=== PATIENT | male | born 1950 | race Hispanic/Latino ===

== ENCOUNTER 2021-08-31 10:34 | Emergency (ER) | payer OTHER ==
[2021-08-31] MEDS ORDERED: LIDOCAINE 4% PATCH ONE (13:50)
[2021-08-31] MEDS ORDERED: CYCLOBENZAPRINE 10 MG TAB ONE (13:50)
[2021-08-31] MEDS ORDERED: KETOROLAC 30 MG/ML INJ ONE (13:50)
--- NOTE | 2021-08-31 14:59 | EDPHYS ---
Physician Documentation [facility] Name: Jeffrey Schafer Age: 70 yrs Sex: Male : 1950 Arrival Date: 08/31/2021 Time: 10:36 Bed 12 Private MD: ED Physician Surinder Beckwith HPI: 08/31 13:39 This 70 yrs old Male presents to ER via Ambulatory with complaints of right pm1 buttocks and leg pain. 13:39 The patient presents with pain, that is acute. The complaints affect the right buttocks pm1 radiating down right leg. Context: The problem was sustained at an unknown site, resulted from an unknown cause, the patient can fully bear weight, the patient is able to ambulate, Problem is a result from a previous injury: No. Onset: The symptoms/episode began/occurred 1 month(s) ago. Associated signs and symptoms: Pertinent negatives numbness, tingling. Treatment prior to arrival includes: no previous treatment. Severity of symptoms: in the emergency department the symptoms are actually worse. The patient has not experienced similar symptoms in the past. The patient has not recently seen a physician. Historical: - Allergies: 11:39 No Known Allergies; vg1 - PMHx: 11:39 Hypertensive disorder; vg1 - PSHx: 11:39 None; vg1 - Immunization history:: Client reports receiving the 2nd dose of the Covid vaccine. - Social history:: Smoking status: Patient reports the use of cigarette tobacco products, smokes one-half pack cigarettes per day. ROS: 13:39 Constitutional: Negative for fever, chills, and weight loss, Cardiovascular: Negative pm1 for chest pain, palpitations, and edema, Respiratory: Negative for shortness of breath, cough, wheezing, and pleuritic chest pain. 13:39 Skin: Negative for injury, rash, and discoloration, Neuro: Negative for headache, weakness, numbness, tingling, and seizure. 13:39 MS/extremity: Positive for right buttock pain radiating down right leg. 13:39 All other systems are negative. Exam: 13:39 Constitutional: This is a well developed, well nourished patient who is awake, alert, pm1 and in no acute distress. Head/Face: Normocephalic, atraumatic. 13:39 Skin: Warm, dry with normal turgor. Normal color with no rashes, no lesions, and no evidence of cellulitis. 13:39 Cardiovascular: Exam negative for acute changes, Rate: normal, Rhythm: regular, Pulses: no pulse deficits are appreciated. 13:39 Respiratory: Exam negative for acute changes, respiratory distress, shortness of breath. 13:39 Abdomen/GI: Exam negative for acute changes, Inspection: abdomen appears normal, Palpation: abdomen is soft and non-tender, in all quadrants. 13:39 Back: Exam negative for acute changes, pain, is absent, normal spinal alignment noted, CVA tenderness, is absent, vertebral tenderness, is not appreciated. 13:39 Musculoskeletal/extremity: Exam is negative for acute changes, Extremities: all appear grossly normal, with no appreciated pain with palpation, ROM: intact in all extremities, Circulation is intact in all extremities. the right leg and left leg Sensation intact. 13:39 Neuro: Exam negative for acute changes, Orientation: is normal, Mentation: is normal, Motor: is normal, moves all fours, Gait: is steady, at a normal pace, without difficulty. Vital Signs: 11:37 BP 185 / 94; Pulse 105; Resp 16; Temp 98.3; Pulse Ox 100% ; Weight 72.57 kg; Height 5 vg1 ft. 6 in. (167.64 cm); Pain 7/10; 13:55 BP 171 / 89; Pulse 101; Resp 18; Pulse Ox 100% on R/A; ld1 15:10 BP 175 / 88; Pulse 91; Resp 19; Pulse Ox 99% on R/A; ld1 11:37 Body Mass Index 25.82 (72.57 kg, 167.64 cm) vg1 MDM: 13:39 Patient medically screened. may 14:57 Data reviewed: vital signs. Data interpreted: Pulse oximetry: on room air is 100 %. pm1 Interpretation: normal. Counseling: I had a detailed discussion with the patient and/or guardian regarding: the historical points, exam findings, and any diagnostic results supporting the discharge/admit diagnosis, the need for outpatient follow up, to return to the emergency department if symptoms worsen or persist or if there are any questions or concerns that arise at home. 15:12 ED course: Patient and his requested blood pressure medication to start on before pm1 seeing his PCP. Patient was prescribed a blood pressure medication by PCP about 1 year and has not taken any of the medication and was concerned that the prescription was already . Administered Medications: 13:54 Drug: Ketorolac 30 mg Route: IM; Site: right gluteus; ld1 13:55 Follow up: Response: No adverse reaction ld1 13:55 Drug: Flexeril (cyclobenzaprine) 10 mg Route: PO; ld1 13:55 Follow up: Response: No adverse reaction ld1 13:55 Drug: Lidoderm Patch 5 % (700 mg/patch) 1 patches Route: Topical; Site: affected area; ld1 Disposition: 09/01 07:41 Co-signature as Attending Physician, Surinder Beckwith MD I agree with the assessment and may plan of care. Disposition Summary: 08/31/21 14:58 Discharge Ordered Location: Home pm1 Problem: new pm1 Symptoms: have improved pm1 Condition: Stable pm1 Diagnosis - Sciatica, left side pm1 - Muscle spasm pm1 Followup: pm1 - With: Emergency Department - When: As needed - Reason: Worsening of condition Followup: pm1 - With: Private Physician - When: 2 - 3 days - Reason: Recheck today's complaints, Continuance of care, Re-evaluation by your physician Discharge Instructions: - Discharge Summary Sheet pm1 - Muscle Cramps and Spasms pm1 - Sciatica pm1 Forms: - Medication Reconciliation Form pm1 - Thank You Letter pm1 - Antibiotic Education pm1 - Prescription Opioid Use pm1 Prescriptions: - Lidoderm 5 % Topical adhesive patch,medicated - apply 1 patch by TRANSDERMAL route once daily As needed 12 hours on and 12 pm1 hours off in a 24 hour period; 10 patch; Refills: 0, Product Selection Permitted - Cyclobenzaprine 10 mg Oral Tablet - take 1 tablet by ORAL route every 8 hours As needed; 30 tablet; Refills: 0, pm1 Product Selection Permitted - Lisinopril 10 mg Oral Tablet - take 1 tablet by ORAL route once daily; 20 tablet; Refills: 0, Product pm1 Selection Permitted - Diclofenac Sodium 75 mg Oral tablet,delayed release (DR/EC) - take 1 tablet by ORAL route 2 times per day As needed; 30 tablet; Refills: 0, pm1 Product Selection Permitted Signatures: Surinder Beckwith MD MD cha Marinas, Patrick, MICHELA TRENCH PIPE LAYER HELPER pm1 Rosa Rowland RN RN vg1 Daniella Mayo, RN RN ld1
--- NOTE | 2021-08-31 14:59 | ER ---
Nurse's Notes [facility] Name: Jeffrey Schafer Age: 70 yrs Sex: Male : 1950 Arrival Date: 08/31/2021 Time: 10:36 Bed 12 Private MD: Diagnosis: Sciatica, left side;Muscle spasm Presentation: 08/31 11:37 Chief complaint: Patient states: Right lower back pain that radiates to buttocks x 1 vg1 month; states pain is 'getting worse'. Coronavirus screen: Vaccine status: Patient reports receiving the 2nd dose of the covid vaccine. Client denies travel out of the [place] in the last 14 days. Ebola Screen: Patient negative for fever greater than or equal to 101.5 degrees Fahrenheit, and additional compatible Ebola Virus Disease symptoms. Initial Sepsis Screen: Does the patient meet any 2 criteria? No. Patient's initial sepsis screen is negative. Does the patient have a suspected source of infection? No. Patient's initial sepsis screen is negative. Risk Assessment: Do you want to hurt yourself or someone else? Patient reports no desire to harm self or others. Onset of symptoms was July 31, 2022. 11:37 Method Of Arrival: Ambulatory vg1 11:37 Acuity: BRIGIDA 3 vg1 Triage Assessment: 11:39 General: Appears in no apparent distress. uncomfortable, Behavior is calm, cooperative. vg1 Pain: Complains of pain in right low back. Historical: - Allergies: 11:39 No Known Allergies; vg1 - PMHx: 11:39 Hypertensive disorder; vg1 - PSHx: 11:39 None; vg1 - Immunization history:: Client reports receiving the 2nd dose of the Covid vaccine. - Social history:: Smoking status: Patient reports the use of cigarette tobacco products, smokes one-half pack cigarettes per day. Screenin:55 Abuse screen: Denies threats or abuse. Denies injuries from another. Nutritional ld1 screening: No deficits noted. Tuberculosis screening: No symptoms or risk factors identified. Fall Risk None identified. Assessment: 13:55 General: Appears in no apparent distress. uncomfortable, Behavior is cooperative, ld1 anxious. Pain: Complains of pain in right gluteus yohannes and right gluteal fold Pain currently is 8 out of 10 on a pain scale. Quality of pain is described as shooting, Pain began gradually, Is continuous. Neuro: Level of Consciousness is awake, alert, obeys commands, Oriented to person, place, time, situation. Cardiovascular: Capillary refill < 3 seconds Patient's skin is warm and dry. Respiratory: Airway is patent Respiratory effort is even, unlabored, Respiratory pattern is regular, symmetrical. GI: Abdomen is flat, non-distended. : No signs and/or symptoms were reported regarding the genitourinary system. EENT: No signs and/or symptoms were reported regarding the EENT system. Derm: No signs and/or symptoms reported regarding the dermatologic system. Musculoskeletal: Reports pain in right gluteus yohannes. Vital Signs: 11:37 BP 185 / 94; Pulse 105; Resp 16; Temp 98.3; Pulse Ox 100% ; Weight 72.57 kg; Height 5 vg1 ft. 6 in. (167.64 cm); Pain 7/10; 13:55 BP 171 / 89; Pulse 101; Resp 18; Pulse Ox 100% on R/A; ld1 15:10 BP 175 / 88; Pulse 91; Resp 19; Pulse Ox 99% on R/A; ld1 11:37 Body Mass Index 25.82 (72.57 kg, 167.64 cm) vg1 ED Course: 10:36 Patient arrived in ED. am2 11:39 Triage completed. vg1 11:39 Arm band placed on. vg1 13:34 Major Lowry NP is PHCP. pm1 13:34 Surinder Beckwith MD is Attending Physician. pm1 13:54 Daniella Mayo RN is Primary Nurse. ld1 13:55 Patient has correct armband on for positive identification. Bed in low position. Call ld1 light in reach. Side rails up X2. staining machine operator on. Pulse ox on. NIBP on. Door closed. Warm blanket given. 13:55 No provider procedures requiring assistance completed. Patient did not have IV access ld1 during this emergency room visit. Administered Medications: 13:54 Drug: Ketorolac 30 mg Route: IM; Site: right gluteus; ld1 13:55 Follow up: Response: No adverse reaction ld1 13:55 Drug: Flexeril (cyclobenzaprine) 10 mg Route: PO; ld1 13:55 Follow up: Response: No adverse reaction ld1 13:55 Drug: Lidoderm Patch 5 % (700 mg/patch) 1 patches Route: Topical; Site: affected area; ld1 Outcome: 14:58 Discharge ordered by MD. pm1 15:16 Discharged to home ambulatory. ld1 15:16 Condition: stable 15:16 Discharge instructions given to patient, family, Instructed on discharge instructions, follow up and referral plans. medication usage, Demonstrated understanding of instructions, follow-up care, medications, Prescriptions given X 3. 15:17 Patient left the ED. ld1 Signatures: Major Lowry NP JET BLADE POLISHER pm1 Andra Burr Victoria, RN RN vg1 Daniella Mayo RN RN ld1
[2021-08-31 15:22] VITALS: TEMP 98.3
[2021-08-31 15:25] VITALS: BP 175/88; O2SAT 99
== END 2021-08-31 15:17 | disposition home or self-care (01) ==
LOC: ER 10:34
DX: M54.32 Sciatica, left side (principal); M62.830 Muscle spasm of back; F17.210 Nicotine dependence, cigarettes, uncomplicated; I10 Essential (primary) hypertension
CPT/HCPCS: 96372; 99284

== ENCOUNTER 2022-01-01 13:51 | Emergency (ER) | payer OTHER ==
--- OUTSIDE RECORDS SUMMARY | 2022-01-01 13:54 | XMS REPORT | Continuity of Care Document ---
:1950 Author Organization [facility] t Address [address] [place] [address] Care Team Providers Name Role Phone Radha Coleen Attending Clinician Unavailable BENOIT HERNANDEZ Attending Clinician Unavailable Eliceo-Mbayo_A_AH Attending Clinician Unavailable Eliceo-Mbayo_A_AH Admitting Clinician Unavailable Payers Payer Name Policy Type Policy Number Effective Date Expiration Date S tim [id number] 15 [id number] 2020 MEDICARE HMO 00:00:00 [place] - [id number] 2019 [facility] (MEDICARE 00:00:00 REPLACEMENT/ADVANTA GE - HMO) Problems This patient has no known problems. Allergies, Adverse Reactions, Alerts This patient has no known allergies or adverse reactions. Medications This patient has no known medications. Procedures This patient has no known procedures. Encounters Start End Encounter Admission Attending Care Care Encounter Source Date/Time Date/Time Type Type Clinicians Facility Department ID 2021-11-06 Outpatient TIFFANY Garcia [facility] [id number] Common 09:36:03 Coleen [facility] 2021-11-[address] [facility] [id number] Common 15:27:05 Coleen [facility] 2021-10-[address] [facility] [id number] Common 13:06:05 [facility] 2021-12-29 2021-12-29 ambulatory [facility] [id number] Common 00:00:00 00:00:00 [facility] 2021-12-09 2021-12-09 ambulatory [facility] [id number] Common 00:00:00 00:00:00 [facility] 2021-11-10 2021-11-10 ambulatory [facility] [id number] Common 00:00:00 00:00:00 [facility] 2021-10-06 2021-10-06 ambulatory [facility] [id number] Common 00:00:00 00:00:00 [facility] 2021-09-16 2021-09-16 Outpatient DOREEN HERNANDEZ [id number] Doreen 13:45:00 13:45:00 BENOIT rascon 2021-09-10 2021-09-10 Outpatient DOREEN HERNANDEZ [id number] Doreen 16:00:00 16:00:00 BENOIT Seybol d 2019-10-11 2019-10-11 Outpatient Eliceo-Mbayo VFP VFP [id number] 04:44:00 04:44:00 _A_AH [id number] 2019-10-11 2019-10-11 Outpatient Eliceo-Mbayo VFP VFP [id number] 04:44:00 04:44:00 _A_AH [id number] Family Practic e 2019-10-11 2019-10-11 Outpatient Eliceo-Mbayo VFP VFP [id number] 04:44:00 04:44:00 _A_AH [id number] Family Practic e Results This patient has no known results.
[2022-01-01 15:02] LABS: Absolute Lymphocytes (CBC) 1.4 K/uL (0.7-4.9); Hematocrit 36.7 % (39.6-49.0); Lymphocytes % 15.1 % (15.3-44.8); MPV 6.7 fL (7.6-11.3); RBC Red Blood Cell Count 4.14 M/uL (4.33-5.43)
[2022-01-01 15:11] LABS: Potassium 3.9 mmol/L (3.5-5.1)
[2022-01-01 15:19] LABS: Albumin 4.2 g/dL (3.4-5.0); Bilirubin Total 0.3 mg/dL (0.2-1.0); Protein, Total 7.6 g/dL (6.4-8.2)
--- NOTE | 2022-01-01 15:30 | ER ---
Nurse's Notes [facility] Name: Jeffrey Schafer Age: 71 yrs Sex: Male : 1950 Arrival Date: 01/01/2022 Time: 13:53 Bed 6 Private MD: Diagnosis: Person with feared health complaint in whom no diagnosis is made Presentation: 01/01 14:35 Chief complaint: Patient states: he was sent by his dr for high potassium. patient ap3 denies any chest pain at this time. patient states that he hasn't had any chest pain, and his provider has checked his potassium twice this week, and both times it was high. Coronavirus screen: At this time, the client does not indicate any symptoms associated with coronavirus-19. Ebola Screen: No symptoms or risks identified at this time. Initial Sepsis Screen: Does the patient meet any 2 criteria? No. Patient's initial sepsis screen is negative. Does the patient have a suspected source of infection? No. Patient's initial sepsis screen is negative. Risk Assessment: Do you want to hurt yourself or someone else? Patient reports no desire to harm self or others. Onset of symptoms was January 01, 2022. 14:35 Method Of Arrival: Ambulatory ap3 14:35 Acuity: BRIGIDA 3 ap3 Triage Assessment: 14:38 General: Appears in no apparent distress. Behavior is calm, cooperative. Pain: Denies ap3 pain. Neuro: Level of Consciousness is awake, alert, obeys commands, Oriented to person, place, time, situation, Appropriate for age Gait is steady, Speech is normal. Cardiovascular: Denies chest pain, shortness of breath, Patient's skin is warm and dry. Respiratory: Airway is patent Respiratory effort is even, unlabored, Respiratory pattern is regular, symmetrical. Historical: - Allergies: 14:37 No Known Allergies; ap3 - Home Meds: 14:37 two blood pressure medications-unknown [Active]; ap3 - PMHx: 14:37 Hypertensive disorder; ap3 - Immunization history:: Client reports receiving the 2nd dose of the Covid vaccine. - Social history:: Smoking status: Patient reports the use of cigarette tobacco products, smokes one-half pack cigarettes per day, Patient uses alcohol, on a daily basis. admits to "couple of beers" a day. Screenin:39 Abuse screen: Denies threats or abuse. Nutritional screening: No deficits noted. ap3 Tuberculosis screening: No symptoms or risk factors identified. Fall Risk None identified. Assessment: 14:51 General: Appears in no apparent distress. Behavior is calm, cooperative. Pain: Denies iw pain. Neuro: Castano Agitation-Sedation Scale (RASS): 0 - Alert and Calm Level of Consciousness is awake, alert, obeys commands, Oriented to person, place, time, situation, Moves all extremities. Full function. Cardiovascular: Patient's skin is warm and dry. Respiratory: Respiratory effort is even, unlabored, Respiratory pattern is regular, symmetrical. Derm: Skin is intact, is healthy with good turgor. Musculoskeletal: Range of motion: intact in all extremities. Vital Signs: 14:35 BP 164 / 67; Pulse 77; Resp 17; Temp 98.1; Pulse Ox 100% on R/A; ap3 ED Course: 13:53 Patient arrived in ED. ds1 14:23 Major Lowry NP is PHCP. pm1 14:23 Emeterio Blanchard MD is Attending Physician. pm1 14:35 Andra Aguilar, HARJINDER is Primary Nurse. ap3 14:37 Triage completed. ap3 14:40 Arm band placed on left wrist. ap3 14:45 Initial lab(s) drawn, by me, sent to lab. Inserted saline lock: 20 gauge in right aa5 antecubital area, using aseptic technique. Blood collected. 14:52 Primary Nurse role handed off by Andra Aguilar, HARJINDER iw 14:52 Yvonne Smith, HARJINDER is Primary Nurse. iw 14:52 Yvonne Smith, HARJINDER is Primary Nurse. iw 15:48 No provider procedures requiring assistance completed. IV discontinued, intact, iw bleeding controlled, No redness/swelling at site. Pressure dressing applied. Administered Medications: No medications were administered Medication: 14:40 VIS not applicable for this client. ap3 Outcome: 15:29 Discharge ordered by . pm1 15:48 Discharged to home ambulatory, with family. iw 15:48 Condition: good 15:48 Discharge instructions given to patient, Instructed on discharge instructions, follow up and referral plans. Demonstrated understanding of instructions, follow-up care. 15:49 Patient left the ED. iw Signatures: Avani Bonds ds1 Yvonne Smith, RN RN iw Cecily Polo, RN RN aa5 Major Lowry, SUPERVISOR JOINERS SUPERVISOR JOINERS pm1 Andra Aguilar, RN RN ap3
--- NOTE | 2022-01-01 15:30 | EDPHYS ---
Physician Documentation [facility] Name: Jeffrye Schafer Age: 71 yrs Sex: Male : 1950 Arrival Date: 01/01/2022 Time: 13:53 Bed 6 Private MD: ED Physician Emeterio Blanchard HPI: 01/01 14:47 This 71 yrs old Male presents to ER via Ambulatory with complaints of High pm1 Potassium- Sent per . 14:47 Patient sent to the ER for evaluation of his elevated potassium. Patient had labs drawn pm1 Keven and yesterday by his PCP and the potassium was elevated on both samples. Onset: The symptoms/episode began/occurred 4 day(s) ago. Severity of symptoms: in the emergency department the symptoms are unchanged. The patient has not experienced similar symptoms in the past. The patient has been recently seen by a physician: the patient's primary care provider. Patient presenting to the ER for abnormal lab values. Patient without any other complaints. Historical: - Allergies: 14:37 No Known Allergies; ap3 - Home Meds: 14:37 two blood pressure medications-unknown [Active]; ap3 - PMHx: 14:37 Hypertensive disorder; ap3 - Immunization history:: Client reports receiving the 2nd dose of the Covid vaccine. - Social history:: Smoking status: Patient reports the use of cigarette tobacco products, smokes one-half pack cigarettes per day, Patient uses alcohol, on a daily basis. admits to "couple of beers" a day. ROS: 14:47 Constitutional: Negative for fever, chills, and weight loss, Cardiovascular: Negative pm1 for chest pain, palpitations, and edema, Respiratory: Negative for shortness of breath, cough, wheezing, and pleuritic chest pain, Abdomen/GI: Negative for abdominal pain, nausea, vomiting, diarrhea, and constipation, Back: Negative for injury and pain, MS/Extremity: Negative for injury and deformity, Skin: Negative for injury, rash, and discoloration, Neuro: Negative for headache, weakness, numbness, tingling, and seizure. 14:47 All other systems are negative. Exam: 14:47 Constitutional: This is a well developed, well nourished patient who is awake, alert, pm1 and in no acute distress. Head/Face: Normocephalic, atraumatic. 14:47 Back: No spinal tenderness. No costovertebral tenderness. Full range of motion. Skin: Warm, dry with normal turgor. Normal color with no rashes, no lesions, and no evidence of cellulitis. MS/ Extremity: Pulses equal, no cyanosis. Neurovascular intact. Full, normal range of motion. 14:47 Cardiovascular: Exam negative for acute changes, Rate: normal, Rhythm: regular, Pulses: no pulse deficits are appreciated. 14:47 Respiratory: Exam negative for acute changes, respiratory distress, shortness of breath, Breath sounds: are clear throughout. 14:47 Abdomen/GI: Exam negative for acute changes, Inspection: abdomen appears normal, Palpation: abdomen is soft and non-tender, in all quadrants. 14:47 Neuro: Exam negative for acute changes, Orientation: is normal, Mentation: is normal, Motor: is normal, moves all fours, Gait: is steady, at a normal pace, without difficulty. Vital Signs: 14:35 BP 164 / 67; Pulse 77; Resp 17; Temp 98.1; Pulse Ox 100% on R/A; ap3 MDM: 14:38 Patient medically screened. pm1 15:28 Data reviewed: vital signs. Data interpreted: Pulse oximetry: on room air is 100 %. pm1 Interpretation: normal. Counseling: I had a detailed discussion with the patient and/or guardian regarding: the historical points, exam findings, and any diagnostic results supporting the discharge/admit diagnosis, lab results, the need for outpatient follow up, to return to the emergency department if symptoms worsen or persist or if there are any questions or concerns that arise at home. 01/01 14:47 Order name: CBC with Diff; Complete Time: 15:17 pm1 01/01 14:47 Order name: CMP; Complete Time: 15:22 pm1 01/01 14:47 Order name: EKG; Complete Time: 14:47 pm1 01/01 14:47 Order name: EKG - Nurse/Tech; Complete Time: 15:11 pm1 01/01 14:47 Order name: IV Saline Lock; Complete Time: 15:11 pm1 Administered Medications: No medications were administered Disposition Summary: 01/01/22 15:29 Discharge Ordered Location: Home pm1 Problem: new pm1 Symptoms: have improved pm1 Condition: Stable pm1 Diagnosis - Person with feared health complaint in whom no diagnosis is made pm1 Followup: pm1 - With: Emergency Department - When: As needed - Reason: Worsening of condition Followup: pm1 - With: Private Physician - When: 2 - 3 days - Reason: Recheck today's complaints, Continuance of care, Re-evaluation by your physician Forms: - Medication Reconciliation Form pm1 - Thank You Letter pm1 - Antibiotic Education pm1 - Prescription Opioid Use pm1 Signatures: Dispatcher [employer] Major Donald NP TOOL ROOM MACHINIST pm1 Andra Aguilar, RN RN ap3
[2022-01-01 15:58] VITALS: BP 164/67; TEMP 98.1; O2SAT 100
--- NOTE | 2022-01-02 11:07 | EKG ---
Test Date: 2022-01-01 Test Time: 14:45:33 Community Living Coach: JAMES MEASUREMENT RESULTS: Intervals: Rate: 75 MA: 136 QRSD: 88 QT: 352 QTc: 393 [place]: P: 76 MA: 136 QRS: 66 T: 55 INTERPRETIVE STATEMENTS: Normal sinus rhythm Normal ECG No previous ECG available for comparison Electronically Signed On 01-02-22 11:06:40 CDT by Kyler Schawb
== END 2022-01-01 15:49 | disposition home or self-care (01) ==
LOC: ER 13:51
DX: Z71.1 Person with feared health complaint in whom no diagnosis is made (principal); I10 Essential (primary) hypertension; F17.210 Nicotine dependence, cigarettes, uncomplicated
CPT/HCPCS: 36415; 80053; 85025; 93005; 99283

== ENCOUNTER 2024-10-29 12:11 | Inpatient (IN) | payer OTHER ==
--- OUTSIDE RECORDS SUMMARY | 2024-10-29 12:15 | XMS REPORT | Continuity of Care Document ---
Author Name Unknown Address [address] [facility] [address] [place] [address] Organization [facility] [place] Address [address] [facility] [address] [place] [address] Care Team Providers Care Lsw Name Role Phone Coleen Garcia Attending Clinician Unavailable BENOIT HERNANDEZ Attending Clinician Unava ilable Eliceo-Mbayo_A_AH Attending Clinician Unavailable Eliceo-Mbayo_A_AH Admitting Clinician Unavailable Payers Payer Name Policy Type Policy Number Effective Date Expirati on Date Source [facility] [id number] 2020 00:00:00 [facility] (MEDICARE REPLACEMENT/ADVANT[facility] GE - HMO) [id number] 2019 00:00:00 Problems Condition Name Condition Details Condition Category Status Onset Date Resolution Date Last Treatment Date Treating Clinician Comments Source Tobacco user Smokes 20 cigarettes per day or less Problem Common [facility] [id number] Essential (primary) hypertensi on Problem [facility] [id number] Mixed hyperlipid emia Problem [facility] Anemia Anemia, unspecifie d type Problem [facility] Social History Social Habit Start Date Stop Date Quantity Comments Source History of Tobacco Use Current Smoker [facility] Sex Assigned At [facility] Smoking Status Start Date Stop Date Source Current Smoker 2024-10-08 00:00:00 [facility] Medications Ordered Medication Name Filled Medication Name Start Date Stop Date Current Medication? Ordering Clinician Indication Dosage Frequency Signature (SIG) Comments Components Source amLODIPine Besylate 10 MG amLODIPine Besylate 10 MG - 00:00: 00 No 1{table t} QD amLODIPine Besylate 10 MG Lisinopril 40 MG Lisinopril 40 MG 10-06 00:00: 00 No 1{table t} QD Lisinopril 40 MG Atorvastati n Calcium 20 MG Atorvastati n Calcium 20 MG No 1{table t} QD Atorvastat in Calcium 20 MG Immunizations Ordered Immunization Name Filled Immunization Name Date Status Comments Source FLUZONE HIGH DOSE OVER 65 FLUZONE HIGH DOSE OVER 65 2022-04-30 16:41:00 Completed [facility] FLUZONE HIGH DOSE OVER 65 FLUZONE HIGH DOSE OVER 65 2022-04-30 16:41:00 Completed [facility] FLUZONE HIGH DOSE OVER 65 FLUZONE HIGH DOSE OVER 65 2022-04-30 16:41:00 Completed [facility] FLUZONE HIGH DOSE OVER 65 FLUZONE HIGH DOSE OVER 65 Unknown Completed [facility] FluAD Quad SD FluAD Quad SD Unknown Completed [facility] FLUZONE HIGH DOSE OVER 65 FLUZONE HIGH DOSE OVER 65 Unknown Completed [facility] FluAD Quad SD FluAD Quad SD Unknown Completed [facility] FLUZONE HIGH DOSE OVER 65 FLUZONE HIGH DOSE OVER 65 Unknown Completed [facility] Fluad (aIIV4) - SDS - 0.5mL Fluad (aIIV4) - SDS - 0.5mL Unknown Completed [facility] FLUZONE HIGH DOSE OVER 65 FLUZONE HIGH DOSE OVER 65 Unknown Completed [facility] Fluad (aIIV4) - SDS - 0.5mL Fluad (aIIV4) - SDS - 0.5mL Unknown Completed [facility] FLUZONE HIGH DOSE OVER 65 FLUZONE HIGH DOSE OVER 65 Unknown Completed [facility] Fluad (aIIV4) - SDS - 0.5mL Fluad (aIIV4) - SDS - 0.5mL Unknown Completed [facility] FLUZONE HIGH DOSE OVER 65 FLUZONE HIGH DOSE OVER 65 Unknown Completed [facility] Fluad (aIIV4) - SDS - 0.5mL Fluad (aIIV4) - SDS - 0.5mL Unknown Completed [facility] FLUZONE HIGH DOSE OVER 65 FLUZONE HIGH DOSE OVER 65 Unknown Completed [facility] Fluad (aIIV4) - SDS - 0.5mL Fluad (aIIV4) - SDS - 0.5mL Unknown Completed [facility] FLUZONE HIGH DOSE OVER 65 FLUZONE HIGH DOSE OVER 65 Unknown Completed [facility] Fluad (aIIV4) - SDS - 0.5mL Fluad (aIIV4) - SDS - 0.5mL Unknown Completed [facility] FLUZONE HIGH DOSE OVER 65 FLUZONE HIGH DOSE OVER 65 Unknown Completed [facility] Fluad (IIV) - SDS - 0.5mL Fluad (IIV) - SDS - 0.5mL Unknown Completed [facility] Prevnar 20 (PCV20) Prevnar 20 (PCV20) Unknown Completed [facility] Vital Signs Vital Name Observation Time Observation Value Comments S ource height 2024-10-09 11:20:00 66 [in_i] [facility]mo [facility] weight 2024-10-09 11:20:00 150.2 [lb_av] Co mmon [facility] temperature 2024-10-09 11:20:00 98 [degF] Comm on [facility] bmi 2024-10-09 11:20:00 24.24 kg/m2 Comm on [facility] oximetry 2024-10-09 11:20:00 98 % [facility] respiratory rate 2024-10-09 11:20:00 16 /min [facility] blood pressure systolic 2024-10-09 11:20:00 138 mm[Hg] [facility] blood pressure diastolic 2024-10-09 11:20:00 65 mm[Hg] [facility] height 2024-10-09 11:20:00 66 [in_i] [facility] weight 2024-10-09 11:20:00 150.2 [lb_av] Co mmon [facility] temperature 2024-10-09 11:20:00 98 [degF] Comm on [facility] bmi 2024-10-09 11:20:00 24.24 kg/m2 Comm on [facility] oximetry 2024-10-09 11:20:00 98 % [facility] respiratory rate 2024-10-09 11:20:00 16 /min [facility] blood pressure systolic 2024-10-09 11:20:00 138 mm[Hg] [facility] blood pressure diastolic 2024-10-09 11:20:00 65 mm[Hg] Common [facility] height 2024-07-25 11:20:00 66 [in_i] [facility]mo [facility] weight 2024-07-25 11:20:00 153.4 [lb_av] Co mmon [facility] temperature 2024-07-25 11:20:00 97.3 [degF] Com mon [facility] bmi 2024-07-25 11:20:00 24.76 kg/m2 Comm on [facility] oximetry 2024-07-25 11:20:00 96 % [facility] respiratory rate 2024-07-25 11:20:00 16 /min [facility] blood pressure systolic 2024-07-25 11:20:00 138 mm[Hg] [facility] blood pressure diastolic 2024-07-25 11:20:00 60 mm[Hg] Common [facility] height 2024-04-17 11:20:00 66 [in_i] [facility]mo [facility] weight 2024-04-17 11:20:00 146 [lb_av] Comm on [facility] temperature 2024-04-17 11:20:00 97.3 [degF] Com [facility] bmi 2024-04-17 11:20:00 23.56 kg/m2 Comm on [facility] oximetry 2024-04-17 11:20:00 97 % [facility] respiratory rate 2024-04-17 11:20:00 16 /min [facility] blood pressure systolic 2024-04-17 11:20:00 132 mm[Hg] Common [facility] blood pressure diastolic 2024-04-17 11:20:00 76 mm[Hg] Common [facility] height 2024-04-17 11:20:00 66 [in_i] [facility]mo [facility] weight 2024-04-17 11:20:00 146 [lb_av] Comm on [facility] temperature 2024-04-17 11:20:00 97.3 [degF] Com [facility] bmi 2024-04-17 11:20:00 23.56 kg/m2 Comm on [facility] oximetry 2024-04-17 11:20:00 97 % [facility] respiratory rate 2024-04-17 11:20:00 16 /min [facility] blood pressure systolic 2024-04-17 11:20:00 132 mm[Hg] [facility] blood pressure diastolic 2024-04-17 11:20:00 76 mm[Hg] Common [facility] height 2024-01-16 13:00:00 66 [in_i] [facility]mo [facility] weight 2024-01-16 13:00:00 146.8 [lb_av] Co mmon [facility] temperature 2024-01-16 13:00:00 97.5 [degF] Com [facility] bmi 2024-01-16 13:00:00 23.69 kg/m2 Comm on [facility] oximetry 2024-01-16 13:00:00 98 % [facility] respiratory rate 2024-01-16 13:00:00 16 /min [facility] blood pressure systolic 2024-01-16 13:00:00 134 mm[Hg] Common [facility] blood pressure diastolic 2024-01-16 13:00:00 78 mm[Hg] [facility] height 2023-10-05 11:00:00 66 [in_i] [facility] weight 2023-10-05 11:00:00 147.6 [lb_av] Co mmon [facility] temperature 2023-10-05 11:00:00 97.9 [degF] Com [facility] bmi 2023-10-05 11:00:00 23.82 kg/m2 Comm on [facility] oximetry 2023-10-05 11:00:00 98 % [facility] respiratory rate 2023-10-05 11:00:00 15 /min [facility] blood pressure systolic 2023-10-05 11:00:00 135 mm[Hg] Common [facility] blood pressure diastolic 2023-10-05 11:00:00 71 mm[Hg] [facility] height 2023-10-05 10:00:00 66 [in_i] [facility] weight 2023-10-05 10:00:00 147.6 [lb_av] Co mmon [facility] temperature 2023-10-05 10:00:00 97.9 [degF] Com [facility] bmi 2023-10-05 10:00:00 23.82 kg/m2 Comm on [facility] oximetry 2023-10-05 10:00:00 98 % [facility] respiratory rate 2023-10-05 10:00:00 15 /min [facility] blood pressure systolic 2023-10-05 10:00:00 135 mm[Hg] [facility] blood pressure diastolic 2023-10-05 10:00:00 71 mm[Hg] [facility] height 2023-07-12 10:00:00 66 [in_i] [facility] weight 2023-07-12 10:00:00 156.6 [lb_av] Co [facility] temperature 2023-07-12 10:00:00 97.7 [degF] Com [facility] bmi 2023-07-12 10:00:00 25.27 kg/m2 Comm on [facility] oximetry 2023-07-12 10:00:00 97 % [facility] respiratory rate 2023-07-12 10:00:00 16 /min [facility] blood pressure systolic 2023-07-12 10:00:00 130 mm[Hg] [facility] blood pressure diastolic 2023-07-12 10:00:00 70 mm[Hg] [facility] height 2023-06-28 11:00:00 66 [in_i] [facility] weight 2023-06-28 11:00:00 154.2 [lb_av] Co [facility] temperature 2023-06-28 11:00:00 97.2 [degF] Com [facility] bmi 2023-06-28 11:00:00 24.89 kg/m2 Comm on [facility] oximetry 2023-06-28 11:00:00 98 % [facility] respiratory rate 2023-06-28 11:00:00 16 /min [facility] blood pressure systolic 2023-06-28 11:00:00 132 mm[Hg] [facility] blood pressure diastolic 2023-06-28 11:00:00 60 mm[Hg] [facility] height 2023-01-26 11:20:00 66 [in_i] [facility]mo [facility] weight 2023-01-26 11:20:00 153 [lb_av] Comm on [facility] temperature 2023-01-26 11:20:00 98.2 [degF] Com mon [facility] bmi 2023-01-26 11:20:00 24.69 kg/m2 Comm on [facility] oximetry 2023-01-26 11:20:00 95 % [facility] respiratory rate 2023-01-26 11:20:00 16 /min [facility] blood pressure systolic 2023-01-26 11:20:00 138 mm[Hg] [facility] blood pressure diastolic 2023-01-26 11:20:00 66 mm[Hg] [facility] height 2023-01-26 10:40:00 66 [in_i] [facility] weight 2023-01-26 10:40:00 153.8 [lb_av] Co m[facility] temperature 2023-01-26 10:40:00 98.2 [degF] Com mon [facility] bmi 2023-01-26 10:40:00 24.82 kg/m2 Comm on [facility] oximetry 2023-01-26 10:40:00 95 % [facility] respiratory rate 2023-01-26 10:40:00 16 /min [facility] blood pressure systolic 2023-01-26 10:40:00 138 mm[Hg] [facility] blood pressure diastolic 2023-01-26 10:40:00 66 mm[Hg] [facility] height 2022-11-01 14:20:00 66 [in_i] [facility] weight 2022-11-01 14:20:00 153.2 [lb_av] Co m[facility] temperature 2022-11-01 14:20:00 97.9 [degF] Com mon [facility] bmi 2022-11-01 14:20:00 24.72 kg/m2 Comm on [facility] oximetry 2022-11-01 14:20:00 98 % [facility] respiratory rate 2022-11-01 14:20:00 16 /min [facility] blood pressure systolic 2022-11-01 14:20:00 126 mm[Hg] [facility] blood pressure diastolic 2022-11-01 14:20:00 72 mm[Hg] Common [facility] height 2022-07-13 11:40:00 66 [in_i] Commo [facility] weight 2022-07-13 11:40:00 150.2 [lb_av] Co mmon [facility] temperature 2022-07-13 11:40:00 97.2 [degF] Com mon [facility] bmi 2022-07-13 11:40:00 24.24 kg/m2 Comm on [facility] oximetry 2022-07-13 11:40:00 99 % [facility] respiratory rate 2022-07-13 11:40:00 17 /min [facility] blood pressure systolic 2022-07-13 11:40:00 139 mm[Hg] [facility] blood pressure diastolic 2022-07-13 11:40:00 71 mm[Hg] Common [facility] height 2022-06-04 11:40:00 66 [in_i] [facility] weight 2022-06-04 11:40:00 154.2 [lb_av] Co [facility] temperature 2022-06-04 11:40:00 98.1 [degF] Com [facility] bmi 2022-06-04 11:40:00 24.89 kg/m2 Comm on [facility] oximetry 2022-06-04 11:40:00 99 % [facility] respiratory rate 2022-06-04 11:40:00 16 /min [facility] blood pressure systolic 2022-06-04 11:40:00 138 mm[Hg] Common [facility] blood pressure diastolic 2022-06-04 11:40:00 60 mm[Hg] [facility] height 2022-04-30 15:40:00 66 [in_i] [facility]mo [facility] weight 2022-04-30 15:40:00 150.6 [lb_av] Co [facility] temperature 2022-04-30 15:40:00 98.5 [degF] Com [facility] bmi 2022-04-30 15:40:00 24.3 kg/m2 [facility] oximetry 2022-04-30 15:40:00 98 % [facility] respiratory rate 2022-04-30 15:40:00 16 /min [facility] blood pressure systolic 2022-04-30 15:40:00 136 mm[Hg] [facility] blood pressure diastolic 2022-04-30 15:40:00 72 mm[Hg] Common [facility] weight 2022-01-22 14:40:00 154.2 [lb_av] Co mmon [facility] temperature 2022-01-22 14:40:00 97.8 [degF] Com mon [facility] bmi 2022-01-22 14:40:00 24.89 kg/m2 Comm on [facility] oximetry 2022-01-22 14:40:00 98 % [facility] respiratory rate 2022-01-22 14:40:00 16 /min [facility] blood pressure systolic 2022-01-22 14:40:00 142 mm[Hg] [facility] blood pressure diastolic 2022-01-22 14:40:00 82 mm[Hg] [facility] height 2022-01-22 14:40:00 66 [in_i] Com[facility] height 2022-01-22 15:00:00 66 [in_i] Com[facility] weight 2022-01-22 15:00:00 154.2 [lb_av] Co mmon [facility] temperature 2022-01-22 15:00:00 97.8 [degF] Com [facility] bmi 2022-01-22 15:00:00 24.89 kg/m2 Comm on [facility] oximetry 2022-01-22 15:00:00 98 % Com[facility] respiratory rate 2022-01-22 15:00:00 16 /min [facility] blood pressure systolic 2022-01-22 15:00:00 142 mm[Hg] [facility] blood pressure diastolic 2022-01-22 15:00:00 82 mm[Hg] Common [facility] height 2021-11-10 14:40:00 66 [in_i] Commo n [facility] weight 2021-11-10 14:40:00 151.8 [lb_av] Co [facility] temperature 2021-11-10 14:40:00 97.8 [degF] Com mon [facility] bmi 2021-11-10 14:40:00 24.5 kg/m2 Com[facility] oximetry 2021-11-10 14:40:00 100 % Commo [facility] respiratory rate 2021-11-10 14:40:00 16 /min [facility] blood pressure systolic 2021-11-10 14:40:00 134 mm[Hg] [facility] blood pressure diastolic 2021-11-10 14:40:00 78 mm[Hg] [facility] height 2021-10-06 14:00:00 66 [in_i] [facility]mo [facility] weight 2021-10-06 14:00:00 149.8 [lb_av] Co mmon [facility] temperature 2021-10-06 14:00:00 97.2 [degF] Com mon [facility] bmi 2021-10-06 14:00:00 24.18 kg/m2 Comm on [facility] oximetry 2021-10-06 14:00:00 100 % Commo [facility] respiratory rate 2021-10-06 14:00:00 16 /min [facility] blood pressure systolic 2021-10-06 14:00:00 138 mm[Hg] [facility] blood pressure diastolic 2021-10-06 14:00:00 70 mm[Hg] [facility] Encounters Start Date/Time End Date/Time Encounter Type Admission Type Attending [facility] Facility Care Department Encounter ID Source 2024-10-09 07:20:00 Outpatient Radha Coleen [facility] [id number] [facility] 2024-01-16 13:23:00 Outpatient Winifred Garciahani [facility] [id number] [facility] 2023-10-03 10:01:01 Outpatient GarciaColeen [facility] [id number] [facility] 2022-09-02 15:38:02 Outpatient GarciaColeen [facility] [id number] [facility] 2022-07-12 10:55:05 Outpatient Garcia, Coleen [facility] [id number] [facility] 2022-06-02 11:39:02 Outpatient GarciaColeen [facility] [id number] [facility] 2022-05-03 12:08:01 Outpatient GarciaColeen [facility] [id number] [facility] 2022-04-21 11:30:01 Outpatient Garcia, Coleen [facility] [id number] [facility] 2022-01-20 09:40:03 Outpatient Coleen [facility] [id number] [facility] 2021-11-06 09:36:03 Outpatient Coleen Garcia [facility] [id number] [facility] 2021-11-04 15:27:05 Outpatient Garcia, Coleen [facility] [id number] [facility] 2021-10-06 13:06:05 Outpatient Coleen Garcia [facility] [id number] [facility] 2024-10-09 00:00:00 2024-10-09 00:00:00 SUB ANNUAL [facility] VIS[facility] [id number] [facility] 2024-10-09 00:00:00 2024-10-09 00:00:00 OFFICE VISIT ESTAB PT LEVEL 4 [facility] [id number] [facility] 2024-07-25 00:00:00 2024-07-25 00:00:00 OFFICE VISIT ESTAB PT LEVEL 4 [facility] [id number] [facility] 2024-04-17 00:00:00 2024-04-17 00:00:00 OFFICE VISIT ESTAB PT LEVEL 4 [facility] [id number] [facility] 2024-01-16 00:00:00 2024-01-16 00:00:00 OFFICE VISIT ESTAB PT LEVEL 4 [facility] [id number] [facility] 2023-12-27 00:00:00 2023-12-27 00:00:00 (TEL) [facility] [id number] [facility] 2023-10-05 00:00:00 2023-10-05 00:00:00 OFFICE VISIT ESTAB PT LEVEL 4 [facility] [id number] [facility] 2023-10-05 00:00:00 2023-10-05 00:00:00 SUB ANNUAL MCR WELLNESS VISIT [facility] [id number] [facility] 2023-09-16 00:00:00 2023-09-16 00:00:00 (TEL) [facility] [id number] [facility] 2023-07-12 00:00:00 2023-07-12 00:00:00 OFFICE VISIT ESTAB PT LEVEL 3 [facility] [id number] [facility] 2023-06-28 00:00:00 2023-06-28 00:00:00 OFFICE VISIT ESTAB PT LEVEL 4 [facility] [id number] [facility] 2023-01-26 00:00:00 2023-01-26 00:00:00 OFFICE VISIT ESTAB PT LEVEL 3 [facility] [id number] [facility] 2023-01-26 00:00:00 2023-01-26 00:00:00 SUB ANNUAL MCR WELLNESS VISIT [facility] [id number] [facility] 2022-11-01 00:00:00 2022-11-01 00:00:00 OFFICE VISIT ESTAB PT LEVEL 4 [facility] [id number] [facility] 2022-07-13 00:00:00 2022-07-13 00:00:00 OFFICE VISIT EST PT LEVEL 3 [facility] [id number] [facility] 2022-06-04 00:00:00 2022-06-04 00:00:00 OFFICE VISIT EST PT LEVEL 3 [facility] [id number] [facility] 2022-04-30 00:00:00 2022-04-30 00:00:00 OFFICE VISIT ESTAB PT LEVEL 4 [facility] [id number] [facility] 2022-01-22 00:00:00 2022-01-22 00:00:00 OFFICE VISIT ESTAB PT LEVEL 4 [facility] [id number] [facility] 2022-01-22 00:00:00 2022-01-22 00:00:00 (MCR WELL) Medicare Wellness [facility] [id number] [facility] 2022-01-01 00:00:00 2022-01-01 00:00:00 (TEL) STL[facility]C [facility] [id number] [facility] 2021-12-29 00:00:00 2021-12-29 00:00:00 (TEL) [facility]C [facility] [id number] [facility] 2021-12-09 00:00:00 2021-12-09 00:00:00 (TEL) [facility]C [facility] [id number] [facility] 2021-11-10 00:00:00 2021-11-10 00:00:00 OFFICE VISIT EST PT LEVEL 3 [facility] [id number] [facility] 2021-10-06 00:00:00 2021-10-06 00:00:00 OFFICE VISIT NEW PT LEVEL 3 [facility] [id number] [facility] 2021-09-16 13:45:00 2021-09-16 13:45:00 Outpatient BENOIT HERNANDEZ [id number] Joi Antony 2021-09-10 16:00:00 2021-09-10 16:00:00 Outpatient BENOIT HERNANDEZ [id number] Joi Antony 2019-10-11 04:44:00 2019-10-11 04:44:00 Outpatient Eliceo-Mbayo _A_AH VFP VFP [id number] [facility] 2019-10-11 04:44:00 2019-10-11 04:44:00 Outpatient Eliceo-Mbayo _A_AH VFP VFP [id number] [facility] 2019-10-11 04:44:00 2019-10-11 04:44:00 Outpatient Eliceo-Mbayo _A_AH VFP VFP [id number] [facility] Results Test Description Test Time Test Comments Results Result Co mments Source CBC W/AUTO [id number] 00:00:00* Test Item Value Reference Range Interpretation Comme nts NUCLEATED RBCS (test code = 94189-5) 0.0 /100 WBC'S See_Comment [Automated messa ge] The system which generated this result transmitted reference range: 0.0 /100 WBC'S. The reference range was not used to interpret this result as normal/abnormal. ABSOLUTE EOSINOPHILS (test code = 59246-5) 0.12 K/UL See_Comment [Automated messa ge] The system which generated this result transmitted reference range: 0.00-0.50 K/UL. The reference range was not used to interpret this result as normal/abnormal. ABSOLUTE LYMPHOCYTES (test code = 71186-6) 1.63 K/UL See_Comment [Automated messa ge] The system which generated this result transmitted reference range: 1.00-4.00 K/UL. The reference range was not used to interpret this result as normal/abnormal. ABSOLUTE MONOCYTES (test code = 87301-8) 0.66 K/UL See_Comment [Automated messa ge] The system which generated this result transmitted reference range: 0.20-1.00 K/UL. The reference range was not used to interpret this result as normal/abnormal. ABSOLUTE NEUTROPHILS (test code = 91550-1) 5.46 K/UL See_Comment [Automated messa ge] The system which generated this result transmitted reference range: 1.50-7.50 K/UL. The reference range was not used to interpret this result as normal/abnormal. BASOPHILS (test code = 59143-3) 0.4 % EOSINOPHILS (test code = 56993-2) 1.5 % HEMATOCRIT (test code = 80492-9) 36.4 % See_Comment L [Automated messa ge] The system which generated this result transmitted reference range: 40.0-51.0 %. The reference range was not used to interpret this result as normal/abnormal. HEMOGLOBIN (test code = 718-7) 12.3 G/DL See_Comment L [Automated messa ge] The system which generated this result transmitted reference range: 13.5-17.0 G/DL. The reference range was not used to interpret this result as normal/abnormal. LYMPHOCYTES (test code = 50784-8) 20.5 % MCH (test code = 19723-5) 29.7 PG See_Comment [Automated messa ge] The system which generated this result transmitted reference range: 25.0-33.0 PG. The reference range was not used to interpret this result as normal/abnormal. MCHC (test code = 21038-4) 33.8 G/DL See_Comment [Automated messa ge] The system which generated this result transmitted reference range: 31.0-36.0 G/DL. The reference range was not used to interpret this result as normal/abnormal. MCV (test code = 68877-4) 87.9 fL See_Comment [Automated messa ge] The system which generated this result transmitted reference range: 80.0-99.0 fL. The reference range was not used to interpret this result as normal/abnormal. MONOCYTES (test code = 52092-2) 8.3 % NEUTROPHILS (test code = 32489-9) 68.7 % PLATELET COUNT (test code = 04088-7) 297 K/UL See_Comment [Automated messa ge] The system which generated this result transmitted reference range: 130-400 K/UL. The reference range was not used to interpret this result as normal/abnormal. RBC (test code = 52170-5) 4.14 M/UL See_Comment L [Automated messa ge] The system which generated this result transmitted reference range: 4.50-6.10 M/UL. The reference range was not used to interpret this result as normal/abnormal. RDW (test code = 10306-4) 13.5 % See_Comment [Automated messa ge] The system which generated this result transmitted reference range: 11.5-15.0 %. The reference range was not used to interpret this result as normal/abnormal. WBC (test code = 73834-3) 8.0 K/UL See_Comment [Automated messa ge] The system which generated this result transmitted reference range: 3.5-11.0 K/UL. The reference range was not used to interpret this result as normal/abnormal. CBC W/AUTO [id number] 00:00:00* Test Item Value Reference Range Interpretation Comme nts NUCLEATED RBCS (test code = 15843-0) 0.0 /100 WBC'S See_Comment [Automated messa ge] The system which generated this result transmitted reference range: 0.0 /100 WBC'S. The reference range was not used to interpret this result as normal/abnormal. ABSOLUTE EOSINOPHILS (test code = 49257-5) 0.18 K/UL See_Comment [Automated messa ge] The system which generated this result transmitted reference range: 0.00-0.50 K/UL. The reference range was not used to interpret this result as normal/abnormal. ABSOLUTE LYMPHOCYTES (test code = 71351-8) 0.96 K/UL See_Comment L [Automated messa ge] The system which generated this result transmitted reference range: 1.00-4.00 K/UL. The reference range was not used to interpret this result as normal/abnormal. ABSOLUTE MONOCYTES (test code = 20025-5) 0.56 K/UL See_Comment [Automated messa ge] The system which generated this result transmitted reference range: 0.20-1.00 K/UL. The reference range was not used to interpret this result as normal/abnormal. ABSOLUTE NEUTROPHILS (test code = 47624-1) 4.77 K/UL See_Comment [Automated messa ge] The system which generated this result transmitted reference range: 1.50-7.50 K/UL. The reference range was not used to interpret this result as normal/abnormal. BASOPHILS (test code = 38722-5) 0.5 % EOSINOPHILS (test code = 29938-1) 2.8 % HEMATOCRIT (test code = 19241-0) 33.3 % See_Comment L [Automated messa ge] The system which generated this result transmitted reference range: 40.0-51.0 %. The reference range was not used to interpret this result as normal/abnormal. HEMOGLOBIN (test code = 718-7) 11.1 G/DL See_Comment L [Automated messa ge] The system which generated this result transmitted reference range: 13.5-17.0 G/DL. The reference range was not used to interpret this result as normal/abnormal. LYMPHOCYTES (test code = 33454-0) 14.7 % MCH (test code = 12220-7) 30.0 PG See_Comment [Automated messa ge] The system which generated this result transmitted reference range: 25.0-33.0 PG. The reference range was not used to interpret this result as normal/abnormal. MCHC (test code = 36904-9) 33.3 G/DL See_Comment [Automated messa ge] The system which generated this result transmitted reference range: 31.0-36.0 G/DL. The reference range was not used to interpret this result as normal/abnormal. MCV (test code = 60385-9) 90.0 fL See_Comment [Automated messa ge] The system which generated this result transmitted reference range: 80.0-99.0 fL. The reference range was not used to interpret this result as normal/abnormal. MONOCYTES (test code = 19430-1) 8.6 % NEUTROPHILS (test code = 37812-1) 73.1 % PLATELET COUNT (test code = 42659-1) 343 K/UL See_Comment [Automated messa ge] The system which generated this result transmitted reference range: 130-400 K/UL. The reference range was not used to interpret this result as normal/abnormal. RBC (test code = 18391-7) 3.70 M/UL See_Comment L [Automated messa ge] The system which generated this result transmitted reference range: 4.50-6.10 M/UL. The reference range was not used to interpret this result as normal/abnormal. RDW (test code = 28675-1) 12.3 % See_Comment [Automated messa ge] The system which generated this result transmitted reference range: 11.5-15.0 %. The reference range was not used to interpret this result as normal/abnormal. WBC (test code = 09499-5) 6.5 K/UL See_Comment [Automated messa ge] The system which generated this result transmitted reference range: 3.5-11.0 K/UL. The reference range was not used to interpret this result as normal/abnormal. CBC W/AUTO [id number] 00:00:00* Test Item Value Reference Range Interpretation Comme nts NUCLEATED RBCS (test code = 23427-5) 0.0 /100 WBC'S See_Comment [Automated messa ge] The system which generated this result transmitted reference range: 0.0 /100 WBC'S. The reference range was not used to interpret this result as normal/abnormal. ABSOLUTE EOSINOPHILS (test code = 56393-1) 0.13 K/UL See_Comment [Automated messa ge] The system which generated this result transmitted reference range: 0.00-0.50 K/UL. The reference range was not used to interpret this result as normal/abnormal. ABSOLUTE LYMPHOCYTES (test code = 84527-2) 1.15 K/UL See_Comment [Automated messa ge] The system which generated this result transmitted reference range: 1.00-4.00 K/UL. The reference range was not used to interpret this result as normal/abnormal. ABSOLUTE MONOCYTES (test code = 95989-7) 0.53 K/UL See_Comment [Automated messa ge] The system which generated this result transmitted reference range: 0.20-1.00 K/UL. The reference range was not used to interpret this result as normal/abnormal. ABSOLUTE NEUTROPHILS (test code = 89862-2) 6.05 K/UL See_Comment [Automated messa ge] The system which generated this result transmitted reference range: 1.50-7.50 K/UL. The reference range was not used to interpret this result as normal/abnormal. BASOPHILS (test code = 88164-5) 0.4 % EOSINOPHILS (test code = 46948-5) 1.6 % HEMATOCRIT (test code = 27875-7) 33.0 % See_Comment L [Automated messa ge] The system which generated this result transmitted reference range: 40.0-51.0 %. The reference range was not used to interpret this result as normal/abnormal. HEMOGLOBIN (test code = 718-7) 11.6 G/DL See_Comment L [Automated messa ge] The system which generated this result transmitted reference range: 13.5-17.0 G/DL. The reference range was not used to interpret this result as normal/abnormal. LYMPHOCYTES (test code = 05345-7) 14.5 % MCH (test code = 02978-6) 31.1 PG See_Comment [Automated messa ge] The system which generated this result transmitted reference range: 25.0-33.0 PG. The reference range was not used to interpret this result as normal/abnormal. MCHC (test code = 77003-8) 35.2 G/DL See_Comment [Automated messa ge] The system which generated this result transmitted reference range: 31.0-36.0 G/DL. The reference range was not used to interpret this result as normal/abnormal. MCV (test code = 83236-7) 88.5 fL See_Comment [Automated messa ge] The system which generated this result transmitted reference range: 80.0-99.0 fL. The reference range was not used to interpret this result as normal/abnormal. MONOCYTES (test code = 10478-7) 6.7 % NEUTROPHILS (test code = 07980-9) 76.4 % PLATELET COUNT (test code = 23081-3) 339 K/UL See_Comment [Automated messa ge] The system which generated this result transmitted reference range: 130-400 K/UL. The reference range was not used to interpret this result as normal/abnormal. RBC (test code = 50252-6) 3.73 M/UL See_Comment L [Automated messa ge] The system which generated this result transmitted reference range: 4.50-6.10 M/UL. The reference range was not used to interpret this result as normal/abnormal. RDW (test code = 85938-3) 12.7 % See_Comment [Automated messa ge] The system which generated this result transmitted reference range: 11.5-15.0 %. The reference range was not used to interpret this result as normal/abnormal. WBC (test code = 21266-1) 7.9 K/UL See_Comment [Automated messa ge] The system which generated this result transmitted reference range: 3.5-11.0 K/UL. The reference range was not used to interpret this result as normal/abnormal.
--- NOTE | 2024-10-29 13:14 | RAD REPORT ---
EXAMINATION: ONE VIEW CHEST XR CLINICAL INDICATION: CHEST PAIN TECHNIQUE: Frontal chest projection is submitted. Examination is limited by patient positioning and t echnique. COMPARISON: No prior exam. FINDINGS: The lungs are diffusely emphysematous but grossly clear. The heart is normal in size. No displaced fr actures identified. IMPRESSION: COPD without an acute process suspected.
[2024-10-29 14:08] LABS: Absolute Lymphocytes (CBC) 0.5 K/uL (0.7-4.9); Absolute Monocytes 0.5 K/uL (0.1-1.3); Absolute Neutrophil 13.7 K/uL (1.8-8.0); Basophils % 0.2 % (0-1.3); Eosinophils % 0.1 % (0-4.4); Hematocrit 34.6 % (39.6-49.0); Hemoglobin 11.8 g/dL (13.6-17.9); Lymphocytes % 3.3 % (15.3-44.8); MCH 30.8 pg (27.0-35.0); MCV 90.4 fL (80-100); MPV 7.6 fL (7.6-11.3); Monocytes % 3.2 % (3.3-12.3); Neutrophils % 93.2 % (41.7-73.7); Platelets 311 thou/uL (152-406); RBC Red Blood Cell Count 3.82 M/uL (4.33-5.43); Red Cell Distribution Width 13.4 % (12.1-15.2)
[2024-10-29 14:22] LABS: Albumin 4.3 g/dL (3.4-5.0); Albumin/Globulin Ratio 1.2 (1.1-1.8); Anion Gap 16.3 mEq/L (5.0-15.0); Bilirubin Direct 0.3 mg/dL (0-0.2); Bilirubin Indirect, Calculated 0.3 mg/dL (0.2-0.8); Bilirubin Total 0.6 mg/dL (0.2-1.0); Globulin 3.5 g/dL (2.3-3.5); Magnesium 2.1 mg/dL (1.6-2.4); PT Prothrombin Time 10.7 SECONDS (10-13.0); Potassium 5.3 mEq/L (3.5-5.1); Protein, Total 7.8 g/dL (6.4-8.2); Protime INR 0.94
[2024-10-29 14:24] LABS: Troponin High Sensitivity 341.7 pg/mL (<58.9)
--- NOTE | 2024-10-29 14:34 | ER ---
Nurse's Notes [facility] Name: Jeffrey Schafer Age: 73 yrs Sex: Male : 1950 Arrival Date: 10/29/2024 Time: 12:11 Bed 18 Private MD: Diagnosis: NSTEMI, chest pain Presentation: 10/29 12:42 Chief complaint: Patient states: CP for 2 days. Had 1 episode 8 days ago. Coronavirus ll1 screen: Client denies travel out of the [place] in the last 14 days. At this time, the client does not indicate any symptoms associated with coronavirus-19. Ebola Screen: Patient denies travel to an Ebola-affected area in the 21 days before illness onset. Initial Sepsis Screen: Does the patient meet any 2 criteria? No. Patient's initial sepsis screen is negative. Does the patient have a suspected source of infection? No. Patient's initial sepsis screen is negative. Risk Assessment: Do you want to hurt yourself or someone else? Patient reports no desire to harm self or others. Onset of symptoms was October 28, 2024. 12:42 Method Of Arrival: Ambulatory ll1 12:42 Acuity: BRIGIDA 3 ll1 Triage Assessment: 12:42 General: Appears in no apparent distress. Behavior is calm, cooperative, appropriate ll1 for age. Pain: Complains of pain in chest. Cardiovascular: Reports chest pain. Historical: - Allergies: 12:41 No Known Allergies; ll1 - PMHx: 12:41 Hypertensive disorder; ll1 - PSHx: 12:41 None; ll1 - Immunization history:: Adult Immunizations up to date. - Social history:: Smoking status: Patient reports the use of cigarette tobacco products, smokes one-half pack cigarettes per day. Screenin:00 [facility] ED Fall Risk Assessment (Adult) History of falling in the last 3 months, aa5 including since admission No falls in past 3 months (0 pts) Confusion or Disorientation No (0 pts) Intoxicated or Sedated No (0 pts) Impaired Gait No (0 pts) Mobility Assist Device Used No (0 pt) Altered Elimination No (0 pt) Score/Fall Risk Level 0 - 2 = Low Risk Oriented to surroundings, Maintained a safe environment, Educated pt \T\ family on fall prevention, incl call for assistance when getting out of bed, Assessed \T\ reinforced patient's understanding of fall precautions. Abuse screen: Denies threats or abuse. Nutritional screening: No deficits noted. Tuberculosis screening: No symptoms or risk factors identified. Assessment: 14:00 General: Appears comfortable, Behavior is calm, cooperative. Pain: Complains of pain in aa5 mid-sternal area Pain does not radiate. Pain currently is 1 out of 10 on a pain scale. Quality of pain is described as aching, Pain began 2-3 days ago. Is intermittent. Neuro: Level of Consciousness is awake, alert, obeys commands, Oriented to person, place, time, situation. Cardiovascular: Reports chest pain, Heart tones S1 S2 present Patient's skin is warm and dry. Rhythm is regular. Respiratory: Airway is patent Respiratory effort is even, unlabored, Respiratory pattern is regular, symmetrical, Breath sounds are clear bilaterally. GI: No signs and/or symptoms were reported involving the gastrointestinal system. : No signs and/or symptoms were reported regarding the genitourinary system. EENT: No signs and/or symptoms were reported regarding the EENT system. Derm: Skin is pink, warm \T\ dry. Musculoskeletal: Range of motion: intact in all extremities. 15:50 Reassessment: Patient is alert, oriented x 3, equal unlabored respirations, skin aa5 warm/dry/pink. Patient denies pain at this time. Cardiovascular: Rhythm is sinus rhythm. 17:00 Reassessment: Patient is alert, oriented x 3, equal unlabored respirations, skin aa5 warm/dry/pink. Patient denies pain at this time. 17:00 Cardiovascular: Rhythm is sinus rhythm. aa5 Vital Signs: 12:42 BP 133 / 60; Pulse 75; Resp 17; Temp 98.4; Pulse Ox 100% ; Weight 68.04 kg; Height 5 ll1 ft. 6 in. ; Pain 6/10; 14:00 BP 125 / 62; Pulse 78; Resp 18 S; Pulse Ox 100% on R/A; aa5 15:00 BP 126 / 65; Pulse 77; Resp 16 S; Pulse Ox 100% on R/A; aa5 16:00 BP 129 / 66; Pulse 88; Resp 16 S; Pulse Ox 99% on R/A; aa5 17:00 BP 115 / 63; Pulse 82; Resp 16 S; Pulse Ox 98% on R/A; aa5 19:16 BP 114 / 61; Pulse 83; Resp 17; Temp 98; Pulse Ox 97% on R/A; Pain 0/10; rg5 12:42 Body Mass Index 24.21 (68.04 kg, 167.64 cm) ll1 12:42 Pain Scale: Adult ll1 19:16 Pain Scale: Adult rg5 ED Course: 12:15 Patient arrived in ED. mr 12:19 Sandy Marshall MD is Attending Physician. sp3 12:41 Arm band placed on. ll1 12:43 Triage completed. ll1 12:43 EKG completed in triage. Results shown to MD. ll1 13:11 XRAY Chest (1 view) In Process Unspecified. EDMS 14:00 Patient has correct armband on for positive identification. Placed in gown. Bed in low aa5 position. Call light in reach. Side rails up X2. Adult w/ patient. Client placed on continuous cardiac and pulse oximetry monitoring. NIBP monitoring applied. assorter on. Pulse ox on. NIBP on. 14:00 Initial lab(s) drawn, by me, sent to lab. Inserted saline lock: 20 gauge in left kb4 antecubital area, using aseptic technique. Blood collected. Flushed with 10 mL NS. 14:00 Patient maintains SpO2 saturation greater than 95% on room air. aa5 14:00 No provider procedures requiring assistance completed. aa5 14:03 Cecily Polo, HARJINDER is Primary Nurse. aa5 14:33 Lonnie Ly MD is Hospitalizing Provider. sp3 15:44 Ptt, Activated Sent. aa5 15:50 Inserted saline lock: 20 gauge in right antecubital area, using aseptic technique. aa5 ,using aseptic technique. PTT collected and sent to lab. 18:00 Patient admitted, IV remains in place. aa5 Administered Medications: 15:52 Drug: Aspirin PO 325 mg PO once Route: PO; aa5 15:54 Drug: Heparin (UT-Bolus No thrombolytic) - HEParin IVP 60 units/kg IVP once; Max 5000 aa5 units {Co-Signature: ss (Imelda Mccormick RN).} Route: IVP; Site: right antecubital; 15:55 Drug: Heparin (UT Drip) 12 units/kg/[place] - ([place] [address] units, D5W IV 500 ml) IV at aa5 calculated rate Per protocol; Max initial rate 1000 units/hr {Co-Signature: ss (Imelda Mccormick RN).} Route: IV; Rate: calculated rate; Site: right antecubital; 15:55 Follow up: started at 800units/hr aa5 Medication: 17:01 VIS not applicable for this client. aa5 Intake: Outcome: 14:34 Decision to Hospitalize by Provider. sp3 18:00 Admitted to ER Hold. Please see [facility] for further documentation. aa5 18:00 Condition: stable 18:00 Instructed on the need for admit, Demonstrated understanding of instructions, 23:09 Patient left the ED. rg5 Signatures: Dispatcher [employer] EDMS Afsaneh Silva, Reg Reg mr PoloCecily, RN RN aa5 Gabo Suggs RN RN ll1 Sandy Marshall MD MD sp3 Clinton Davidson RN RN rg5 Deepika Dennison kb4 Imelda Mccormick RN ss
--- NOTE | 2024-10-29 14:34 | EDPHYS ---
Physician Documentation [facility] Name: Jeffrey Schafer Age: 73 yrs Sex: Male : 1950 Arrival Date: 10/29/2024 Time: 12:11 Bed 18 Private MD: ED Physician Sandy Marshall HPI: 10/29 12:41 This 73 yrs old Male presents to ER via Unassigned with complaints of Chest sp3 Pain. 12:41 73-year-old male with history of hypertension presents to the ED with chief complaint sp3 chest pain that started this morning approximately 10 AM that is waxing and waning and somewhat improved however still present. He denies any associated symptoms including headache, shortness of breath, neck pain, left arm pain, vomiting, diarrhea, abdominal pain, back pain, rash, syncope, near syncope, known sick contacts, travel history, prolonged immobilization, or any other signs or symptoms on ROS at this time. 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 He is compliant on his blood pressure medications.. Historical: - Allergies: 12:41 No Known Allergies; ll1 - PMHx: 12:41 Hypertensive disorder; ll1 - PSHx: 12:41 None; ll1 - Immunization history:: Adult Immunizations up to date. - Social history:: Smoking status: Patient reports the use of cigarette tobacco products, smokes one-half pack cigarettes per day. ROS: 12:42 Constitutional: Negative for fever, chills, and weight loss, Eyes: Negative for injury, sp3 pain, redness, and discharge, ENT: Negative for injury, pain, and discharge, Neck: Negative for injury, pain, and swelling, Respiratory: Negative for shortness of breath, cough, wheezing, and pleuritic chest pain, Abdomen/GI: Negative for abdominal pain, nausea, vomiting, diarrhea, and constipation, Back: Negative for injury and pain, MS/Extremity: Negative for injury and deformity, Skin: Negative for injury, rash, and discoloration, Neuro: Negative for headache, weakness, numbness, tingling, and seizure, Psych: Negative for depression, anxiety, suicide ideation, homicidal ideation, and hallucinations, Allergy/Immunology: Negative for hives, rash, and allergies, Endocrine: Negative for neck swelling, polydipsia, polyuria, polyphagia, and marked weight changes, Hematologic/Lymphatic: Negative for swollen nodes, abnormal bleeding, and unusual bruising, 12:42 All other systems are negative, Exam: 12:43 Constitutional: This is a well developed, well nourished patient who is awake, alert, sp3 and in no acute distress. Head/Face: Normocephalic, atraumatic. Eyes: Pupils equal round and reactive to light, extra-ocular motions intact. Lids and lashes normal. Conjunctiva and sclera are non-icteric and not injected. Cornea within normal limits. Periorbital areas with no swelling, redness, or edema. ENT: Nares patent. No nasal discharge, no septal abnormalities noted. External auditory canals are clear. Oropharynx with no redness, swelling, or masses, exudates, or evidence of obstruction, uvula midline. Mucous membranes moist. Neck: Trachea midline, no thyromegaly or masses palpated, and no cervical lymphadenopathy. Supple, full range of motion without nuchal rigidity, or vertebral point tenderness. No Meningismus. Chest/axilla: Normal chest wall appearance and motion. Nontender with no deformity. No lesions are appreciated. Cardiovascular: Regular rate and rhythm with a normal S1 and S2. No gallops, murmurs, or rubs. Normal PMI, no JVD. No pulse deficits. Respiratory: Lungs have equal breath sounds bilaterally, clear to auscultation and percussion. No rales, rhonchi or wheezes noted. No increased work of breathing, no retractions or nasal flaring. Abdomen/GI: Soft, non-tender, with normal bowel sounds. No distension or tympany. No guarding or rebound. No evidence of tenderness throughout. Back: No spinal tenderness. No costovertebral tenderness. Full range of motion. Skin: Warm, dry with normal turgor. Normal color with no rashes, no lesions, and no evidence of cellulitis. MS/ Extremity: Pulses equal, no cyanosis. Neurovascular intact. Full, normal range of motion. Neuro: Awake and alert, GCS 15, oriented to person, place, time, and situation. Cranial nerves II-XII grossly intact. Motor strength 5/5 in all extremities. Sensory grossly intact. Cerebellar exam normal. Normal gait. Psych: Awake, alert, with orientation to person, place and time. Behavior, mood, and affect are within normal limits. 12:43 ECG was reviewed by the Attending Physician. EKG demonstrates normal sinus rhythm at 80 bpm with normal intervals, normal QRS, normal axis, normal ST/T-segment's without evidence of acute ischemia. Vital Signs: 12:42 BP 133 / 60; Pulse 75; Resp 17; Temp 98.4; Pulse Ox 100% ; Weight 68.04 kg; Height 5 ll1 ft. 6 in. ; Pain 6/10; 14:00 BP 125 / 62; Pulse 78; Resp 18 S; Pulse Ox 100% on R/A; aa5 15:00 BP 126 / 65; Pulse 77; Resp 16 S; Pulse Ox 100% on R/A; aa5 16:00 BP 129 / 66; Pulse 88; Resp 16 S; Pulse Ox 99% on R/A; aa5 17:00 BP 115 / 63; Pulse 82; Resp 16 S; Pulse Ox 98% on R/A; aa5 19:16 BP 114 / 61; Pulse 83; Resp 17; Temp 98; Pulse Ox 97% on R/A; Pain 0/10; rg5 12:42 Body Mass Index 24.21 (68.04 kg, 167.64 cm) ll1 12:42 Pain Scale: Adult ll1 19:16 Pain Scale: Adult rg5 MDM: 12:19 Medical Screening Exam initiated sp3 12:43 Data reviewed: vital signs, nurses notes, old medical records, lab test result(s), EKG, sp3 radiologic studies. ED course: 73-year-old male with history of hypertension and presents with new onset chest pain. Differential diagnosis includes acute coronary syndrome, musculoskeletal chest pain, GI related chest pain, among others. Workup will include EKG, chest x-ray, general labs including troponin and supportive care. No pharmacological intervention indicated at this time. Disposition pending workup and patient course.. 14:29 ED course: Troponin at 340 with normal creatinine. Patient will be admitted with sp3 cardiology consultation whom I have already communicated with via text message. Repeat EKG pending. Defer anticoagulation to inpatient team.. 14:38 ED course: Repeat EKG unchanged. Chest pain per patient fluctuating between 0 and 1 out sp3 of 10.. 03 12:19 Order name: Basic Metabolic Panel; Complete Time: 14:25 sp3 10/29 12:19 Order name: CBC with Diff sp3 10/29 12:19 Order name: LFT's; Complete Time: 14:25 sp3 10/29 12:19 Order name: Magnesium; Complete Time: 14:25 sp3 10/29 12:19 Order name: NT PRO-BNP; Complete Time: 14:25 sp3 10/29 12:19 Order name: PT-INR; Complete Time: 14:25 sp3 10/29 12:19 Order name: Troponin HS; Complete Time: 14:25 sp3 10/29 15:09 Order name: Basic Metabolic Panel EDMS 10/29 15:09 Order name: Basic Metabolic Panel EDMS 10/29 15:09 Order name: Basic Metabolic Panel EDMS 10/29 15:09 Order name: Basic Metabolic Panel EDMS 10/29 15:09 Order name: CBC with Automated Diff EDMS 10/29 15:09 Order name: CBC with Automated Diff EDMS 10/29 15:09 Order name: CBC with Automated Diff EDMS 10/29 15:09 Order name: CBC with Automated Diff EDMS 10/29 15:09 Order name: Magnesium EDMS 10/29 15:09 Order name: Magnesium EDMS 10/29 15:09 Order name: Magnesium EDMS 10/29 15:09 Order name: Magnesium EDMS 10/29 15:09 Order name: Troponin High Sensitivity EDMS 10/29 15:09 Order name: Troponin High Sensitivity EDMS 10/29 15:09 Order name: Troponin High Sensitivity EDMS 10/29 15:19 Order name: Ptt, Activated aa5 10/29 15:19 Order name: CBC Smear Scan EDMS 10/29 18:15 Order name: Urinalysis w/ reflexes EDMS 10/29 18:18 Order name: UR SODIUM EDMS 10/29 18:18 Order name: UR POTASSIUM EDMS 10/29 18:23 Order name: UR CREAT EDMS 10/29 18:37 Order name: Osmolality, Serum EDMS 10/29 18:38 Order name: Osmolality, Urine EDMS 10/29 19:19 Order name: Ptt, Activated rg5 10/29 20:01 Order name: PTT, Activated Partial Thromb EDMS 10/29 12:19 Order name: XRAY Chest (1 view); Complete Time: 13:26 sp3 10/29 15:09 Order name: Echo with Doppler EDMS 10/29 12:19 Order name: Cardiac monitoring; Complete Time: 14:00 sp3 10/29 12:19 Order name: EKG - Nurse/Tech; Complete Time: 12:41 sp3 10/29 12:19 Order name: IV Saline Lock; Complete Time: 14:00 sp3 10/29 12:19 Order name: Labs collected and sent; Complete Time: 14:00 sp3 10/29 12:19 Order name: O2 Per Protocol; Complete Time: 14:03 sp3 10/29 12:20 Order name: O2 Sat Monitoring; Complete Time: 14:09 sp3 Administered Medications: 15:52 Drug: Aspirin PO 325 mg PO once Route: PO; aa5 15:54 Drug: Heparin (MS-Bolus No thrombolytic) - HEParin IVP 60 units/kg IVP once; Max 5000 aa5 units {Co-Signature: rodolfo (Imelda Mccormick RN).} Route: IVP; Site: right antecubital; 15:55 Drug: Heparin (MS Drip) 12 units/kg/hr - ([place] [address] units, D5W IV 500 ml) IV at aa5 calculated rate Per protocol; Max initial rate 1000 units/hr {Co-Signature: rodolfo (Imelda Mccormick RN).} Route: IV; Rate: calculated rate; Site: right antecubital; 15:55 Follow up: started at 800units/hr aa5 Disposition Summary: 10/29/24 14:34 Hospitalization Ordered Notes: Hospitalization Status: Inpatient Admission sp3 Provider: Lonnie Ly sp3 Condition: Stable sp3 Problem: an acute exacerbation sp3 Symptoms: have worsened sp3 Bed/Room Type: Standard sp3 Location: Telemetry/MedSurg (Inpatient)(10/29/24 19:07) [facility] Room Assignment: [facility](10/29/24 21:29) Diagnosis - NSTEMI, chest pain sp3 Forms: - Medication Reconciliation Form sp3 - SBAR form sp3 - Leadership Thank You Letter sp3 Signatures: Dispatcher [employer] Cecily Reese RN RN aa5 Clarence Garza FNP-C SHIELD CLEANER-Cla1 Carrie Rowland RN RN cg Gabo Suggs RN RN ll1 Sandy Marshall MD MD sp3 Crystal Simental RN RN 3 Joi Rizzo [facility] Imelda Mccormick RN ss Corrections: (The following items were deleted from the chart) 12:20 12:20 BASIC METABOLIC PANEL+C.LAB.BRZ ordered. EDMS EDMS 12:20 12:20 CBC+H.LAB.BRZ ordered. EDMS EDMS 12:20 12:20 HEPATIC FUNCTION+C.LAB.BRZ ordered. EDMS EDMS 12:20 12:20 MAGNESIUM+C.LAB.BRZ ordered. EDMS EDMS 12:20 12:20 PROBNP+C.LAB.BRZ ordered. EDMS EDMS 12:20 12:20 PROTIME (+INR)+COAG.LAB.BRZ ordered. EDMS EDMS 12:20 12:20 Troponin High Sensitivity+C.LAB.BRZ ordered. EDMS EDMS 12:20 12:20 Chest Single View+RAD.RAD.BRZ ordered. EDMS EDMS 16:19 14:34 Telemetry/MedSurg (Inpatient) sp3 kb3 16:19 14:34 sp3 kb3 19:07 16:19 [facility] ER HOLD kb3 kmf 19:07 16:19 ERHOLD- kb3 kmf 19:16 19:07 408 kmf cg 21:29 19:16 cg cg
[2024-10-29] MEDS ORDERED: MORPHINE 2 MG/ML SYR IV PRN (15:04)
[2024-10-29 15:18] LABS: Platelet Estimate ADEQ; White Blood Cell Scan OK (OK)
[2024-10-29 15:19] LABS: Blood Morphology Comment NOT SEEN (NOT SEEN)
[2024-10-29] MEDS ORDERED: HEPARIN 5000 UNIT/ML 1 ML VIAL ONE (15:33)
[2024-10-29] MEDS ORDERED: HEPARIN/D5W 25,000 UNIT/500 ML BAG IV ONE (15:33)
[2024-10-29] MEDS ORDERED: ASPIRIN 325 MG TAB ONE (15:33)
[2024-10-29] MEDS ORDERED: HEPARIN/D5W 25,000 UNIT/500 ML BAG IV SCH (16:00)
--- NOTE | 2024-10-29 17:00 | P.HP ---
Certification for Inpatient Patient admitted to: Inpatient With expected LOS: >2 Midnights Patient will require the following post-hospital care: None Practitioner: I am a practitioner with admitting privileges, knowledge of patient current condition, hospital course, and medical plan of care. Services: Services provided to patient in accordance with Admission requirements found in Title 42 Section 412.3 of the Code of Federal Regulations Patient History Date of Service: 10/29/24 Reason for admission: NSTEMI History of Present Illness: 73-year-old male with history of hypertension presents the emergency department chief complaint of chest pain. He reports has been having intermittent chest pain over the course the last couple days but was worse today. He is extensive family history of heart disease and has never had any kind of testing including stress test, echo or coronary angiogram. He was evaluated in the emergency department his initial high-sensitivity troponin was 341.7 with a BNP of 816, additionally his sodium was 124 his potassium was 5.3. White blood cell count was 14.7, hemoglobin 11.8 chest x-ray was obtained which showed suspected COPD without an acute process. Patient reports his chest pain is significantly proved at this time rating it around a 1 out of 10 described as pressure-like and nonradiating. He will be admitted for further management of his NSTEMI. - Past Medical/Surgical History -: Hypertension -: None Psychosocial/ Personal History: Lives at home with family - Family History Brother -: Heart disease Notes: Multiple brothers with heart disease Mother -: Heart disease - Social History Smoking Status: Current every day smoker Alcohol use: No CD- Drugs: No Caffeine use: Yes Place of Residence: Home Review of Systems 10-point ROS is otherwise unremarkable Cardiovascular: Chest Pain Physical Examination - Physical Exam General: Alert, In no apparent distress, Oriented x3 HEENT: Atraumatic, PERRLA, EOMI Neck: Supple, 2+ carotid pulse no bruit, No LAD, Without JVD or thyroid abnormality Respiratory: Clear to auscultation bilaterally, Normal air movement Cardiovascular: Regular rate/rhythm, Normal S1 S2 Gastrointestinal: Normal bowel sounds, No tenderness Musculoskeletal: No tenderness Integumentary: No rashes Neurological: Normal speech, Normal strength at 5/5 x4 extr, Normal tone - Studies Laboratory Data (last 24 hrs) 10/29/24 10/29/24 10/29/24 13:55 13:55 13:55 WBC 14.70 H Hgb 11.8 L Hct 34.6 L Plt Count 311 PT 10.7 INR 0.94 Sodium 124 L Potassium 5.3 H BUN 9 Creatinine 0.98 Glucose 84 Magnesium 2.1 Total Bilirubin 0.6 AST 23 ALT 19 Alkaline Phosphatase 68 Assessment and Plan - Plan Assessment: NSTEMI Hypertension Hyponatremia Hyperkalemia Plan: NSTEMI Pain significant improved at this time Started on heparin drip Continue aspirin, statin, as needed pain medications Cardiology consulted, likely coronary angiogram tomorrow N.p.o. after midnight Hypertension Continue home medications when verified Hyponatremia Hyperkalemia Will give gentle IV fluids overnight Urine electrolytes, serum and urine osmolality ordered Recheck chemistry in the morning DVT PPX: Heparin drip Code status: Full Discharge Plan: Home Plan to discharge in: 48 Hours - Advance Directives Does patient have a Living Will: No Does patient have a Durable POA for Healthcare: No - Code Status/Comfort Care Code Status Assessed: Yes (Full code) Critical Care: No Time Spent Managing Pts Care (In Minutes): 65
[2024-10-29] MEDS ORDERED: NA CHLORIDE 0.9% 1,000 ML ONE (17:53)
[2024-10-29] MEDS: NA CHLORIDE 0.9% 1,000 ML IV SCH (18:00)
[2024-10-29 18:15] LABS: Urine Bilirubin NEGATIVE (Negative); Urine Blood Negative (Negative); Urine Clarity Clear (Clear); Urine Color Colorless (Yellow); Urine Glucose NEGATIVE (Negative); Urine Ketones 2+ (Negative); Urine Microscopic Reflex YN NO UMIC; Urine Nitrite NEGATIVE (Negative); Urine Protein NEGATIVE (Negative); Urine Urobilinogen Normal (Normal)
[2024-10-29 18:31] VITALS: BMI 24.2
[2024-10-29] MEDS: ATORVASTATIN 40 MG TAB PO SCH (21:00)
[2024-10-29 21:26] LABS: Troponin High Sensitivity 3108.7 pg/mL (<58.9)
[2024-10-29 23:30] LABS: Uric Acid 5.3 mg/dL (3.5-7.2)
[2024-10-30 05:58] LABS: Absolute Eosinophils 0.1 K/uL (0-0.5); Absolute Lymphocytes (CBC) 0.8 K/uL (0.7-4.9); Absolute Monocytes 0.7 K/uL (0.1-1.3); Absolute Neutrophil 6.3 K/uL (1.8-8.0); Basophils % 0.5 % (0-1.3); Eosinophils % 0.6 % (0-4.4); Hematocrit 31.7 % (39.6-49.0); Lymphocytes % 10.7 % (15.3-44.8); MCH 31.2 pg (27.0-35.0); MCHC 34.9 g/dL (32.0-36.0); MCV 89.5 fL (80-100); MPV 7.8 fL (7.6-11.3); Monocytes % 8.7 % (3.3-12.3); Neutrophils % 79.5 % (41.7-73.7); Platelets 279 thou/uL (152-406); RBC Red Blood Cell Count 3.54 M/uL (4.33-5.43); Red Cell Distribution Width 13.7 % (12.1-15.2)
[2024-10-30 06:04] LABS: Anion Gap 12.1 mEq/L (5.0-15.0); Magnesium 2.2 mg/dL (1.6-2.4); Potassium 4.1 mEq/L (3.5-5.1)
[2024-10-30] MEDS: ASPIRIN EC 81 MG TAB PO SCH (08:00)
[2024-10-30] MEDS ORDERED: HEPARIN 10,000 UNIT/10 ML VIAL IV ONE (10:15)
[2024-10-30] MEDS ORDERED: HEPA 1000U/500MLS 2,000 UNIT/1,000 ML BAG IV ONE (10:15)
[2024-10-30] MEDS ORDERED: LIDOCAINE 1% 20 ML MDV ONE (10:15)
[2024-10-30] MEDS ORDERED: MIDAZOLAM HCL 2 MG/2 ML INJ ONE (10:15)
[2024-10-30] MEDS ORDERED: CLOPIDOGREL 75 MG TABLET ONE (10:16)
[2024-10-30] MEDS ORDERED: ATROPINE SULF 1 MG/10 ML SYR IV ONE (10:16)
[2024-10-30] MEDS ORDERED: ASPIRIN 325 MG TAB ONE (10:16)
[2024-10-30] MEDS ORDERED: TICAGRELOR 90 MG TABLET PO ONE (10:16)
[2024-10-30] MEDS ORDERED: FENTANYL CITR 100 MCG/2 ML ONE (10:16)
[2024-10-30] MEDS ORDERED: HEPARIN 5000 UNIT/ML 1 ML VIAL ONE (10:16)
--- NOTE | 2024-10-30 10:53 | P.CNS ---
Date of Consult: 10/30/24 Chief Complaint: NSTEMI History of Present Illness: Patient with PMH of HTN presented with chest pain that has been going on for 1 week, denies any other symptoms. Allergies No Known Allergies Allergy (Verified 10/29/24 17:49) Home medications list reviewed: Yes Home Medications: Amlodipine [Norvasc*] 5 mg PO DAILY 10/29/24 Atorvastatin Calcium 20 mg PO DAILY 10/29/24 lisinopriL [Lisinopril] 40 mg PO DAILY 10/29/24 - Past Medical/Surgical History -: Hypertension -: None Psychosocial/ Personal History: Lives at home with family - Family History Brother Medical History: Heart disease Notes: Multiple brothers with heart disease Mother Medical History: Heart disease - Social History Smoking Status: Current every day smoker Alcohol use: No CD- Drugs: No Caffeine use: Yes Place of Residence: Home Review of Systems 10-point ROS is otherwise unremarkable Physical Examination Temp Pulse Resp BP Pulse Ox 98.6 F 75 20 115/60 98 10/30/24 08:00 10/30/24 08:00 10/30/24 08:00 10/30/24 08:00 10/30/24 08:00 General: Alert, In no apparent distress HEENT: Atraumatic, PERRLA, Mucous membr. moist/pink, EOMI, Sclerae nonicteric Neck: Supple, 2+ carotid pulse no bruit, No LAD, Without JVD or thyroid abnormality Respiratory: Clear to auscultation bilaterally, Normal air movement Cardiovascular: Regular rate/rhythm, Normal S1 S2 Gastrointestinal: Normal bowel sounds, No tenderness Musculoskeletal: No tenderness Integumentary: No rashes Neurological: Normal gait, Normal speech, Normal tone, Normal affect Lymphatics: No axilla or inguinal lymphadenopathy Laboratory Data (last 24 hrs) 10/29/24 10/29/24 10/29/24 13:55 13:55 13:55 WBC 14.70 H Hgb 11.8 L Hct 34.6 L Plt Count 311 PT 10.7 INR 0.94 Sodium 124 L Potassium 5.3 H BUN 9 Creatinine 0.98 Glucose 84 Magnesium 2.1 Total Bilirubin 0.6 AST 23 ALT 19 Alkaline Phosphatase 68 - Problems (1) NSTEMI (non-ST elevated myocardial infarction) Current Visit: Yes Status: Acute Plan: NPO for coronary angiogram ASA 81 mg daily Lipitor 40 mg daily Heparin drip get echo
[2024-10-30 13:49] VITALS: TEMP 97.9
[2024-10-30 13:55] VITALS: O2SAT 99
[2024-10-30 14:05] VITALS: BP 148/69
--- NOTE | 2024-10-30 15:21 | P.DS ---
Admission Date: 10/29/24 Discharge Date: 10/30/24 Disposition: TRANSFER TO [facility] Discharge Condition: FAIR Reason for Admission: NSTEMI Brief History of Present Illness: Diagnosis NSTEMI Hypertension Hyponatremia Hyperkalemia [facility] 10/29/24 73-year-old male with history of hypertension presents the emergency department chief complaint of chest pain. He reports has been having intermittent chest pain over the course the last couple days but was worse today. He is extensive family history of heart disease and has never had any kind of testing including stress test, echo or coronary angiogram. He was evaluated in the emergency department his initial high-sensitivity troponin was 341.7 with a BNP of 816, additionally his sodium was 124 his potassium was 5.3. White blood cell count was 14.7, hemoglobin 11.8 chest x-ray was obtained which showed suspected COPD without an acute process. Patient reports his chest pain is significantly proved at this time rating it around a 1 out of 10 described as pressure-like and nonradiating. He will be admitted for further management of his NSTEMI. Hospital Course: Patient was admitted and treated for the following diagnoses NSTEMI Pain significantly improved Troponin 341/1341/3108 Continued heparin drip Continued aspirin, statin, as needed pain medications Cardiology consulted, [facility] showing significant multivessel disease including LAD, Diagonal, OM, and RPDA Will transfer for CABG evaluation Hypertension Continued home medications when verified Hyponatremia Hyperkalemia Tolerated gentle IV fluids overnight Urine potassium 49.0, sodium 40, serum osmolality 260 and urine osmolality 257 On 10/30/2024, Jeffrey was seen on morning rounds and deemed hemodynamically stable. Status post heart cath, Dr. Grider recommended trasnfer to [facility] for CABG evaluation. Physical Exam General: Alert and Oriented x3, NAD Neck: Supple, 2+ carotid pulse no bruit, No LAD Respiratory: Clear BBS, Normal air movement, on RA Cardiovascular: NSR, Normal S1 S2 Gastrointestinal: Normal bowel sounds, soft on palpation Musculoskeletal: No tenderness Integumentary: No rashes Neurological: Normal speech, Normal strength at 5/5 x4 extr, Normal tone Vital Signs/Physical Exam: Temp Pulse Resp BP Pulse Ox 97.9 F 77 118 H 148/69 H 98 10/30/24 11:40 10/30/24 13:50 10/30/24 13:50 10/30/24 13:50 10/30/24 08:00 Laboratory Data at Discharge: WBC 7.90 thou/uL (4.3-10.9) 10/30/24 05:31 Hgb 11.0 g/dL (13.6-17.9) L 10/30/24 05:31 Hct 31.7 % (39.6-49.0) L 10/30/24 05:31 Plt Count 279 thou/uL (152-406) 10/30/24 05:31 PT 10.7 SECONDS (10-13.0) 10/29/24 13:55 INR 0.94 10/29/24 13:55 APTT 55.4 SECONDS (27.2-37.4) H 10/30/24 00:15 Sodium 131 mEq/L (136-145) L D 10/30/24 05:31 Potassium 4.1 mEq/L (3.5-5.1) D 10/30/24 05:31 BUN 13 mg/dL (7-18) 10/30/24 05:31 Creatinine 0.83 mg/dL (0.70-1.30) 10/30/24 05:31 Glucose 118 mg/dL (74-106) H 10/30/24 05:31 Uric Acid 5.3 mg/dL (3.5-7.2) 10/29/24 21:00 Magnesium 2.2 mg/dL (1.6-2.4) 10/30/24 05:31 Total Bilirubin 0.6 mg/dL (0.2-1.0) 10/29/24 13:55 AST 23 U/L (15-37) 10/29/24 13:55 ALT 19 U/L (16-61) 10/29/24 13:55 Alkaline Phosphatase 68 U/L (45-117) 10/29/24 13:55 Home Medications: Amlodipine [Norvasc*] 5 mg PO DAILY 10/29/24 Atorvastatin Calcium 20 mg PO DAILY 10/29/24 lisinopriL [Lisinopril] 40 mg PO DAILY 10/29/24 Followup: Coleen Garcia MD [Primary Care Provider] -
--- NOTE | 2024-10-30 20:13 | OP ---
Date of Procedure: 10/30/2024 Surgeon: Eran Grider Procedure Performed: Selective coronary angiogram. Indication For Procedure: [id number]. Complications: None. Estimated Blood Loss: Less than 50 cc. Access: Right radial, closed by TR band. Sedation Time: 20 minutes with 1 of Versed and 50 of fentanyl. Description Of Procedure: After risks, and benefits, and alternatives were explained to the patient, patient agreed to proceed with procedure and signed informed consent. The patient was brought back to the qc lab technician, prepped and draped in sterile fashion. Time-out was performed. Sedation was admini stered. Next, right radial access was obtained using ultrasound-guided micropuncture technique. Tig er 4.0 catheter was advanced over a J-wire to the aortic root. Selective angiogram was done using e same catheter. At the end of the procedure, catheter was removed over a J-wire. Sheath was remove d. TR band was applied. Hemostasis was achieved and the patient was moved back to Recovery in stabl e condition. Findings: 1. 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 2. LAD; heavy calcified with a proximal 90% disease, then mid 80% disease before bifurcating into eric gonal and distal LAD got 80% disease. 3. Left circ; mild luminal irregularities, gives large OM1 that got mid 70% to 80% disease and then c ontinued as mild luminal irregularities. 4. RCA; large, dominant with mid 60% disease and then bifurcates into RPDA and RPLV, the RPDA got pro ximal to mid 80% to 90% disease, then continued as mild luminal irregularities. 5. Left subclavian artery; proximal calcified 30% disease. 6. GONZÁLES is patent. Assessment And Plan: Significant multivessel disease including LAD, diagonal, OM, and RPDA. Plan is to transfer for urgent CABG. GARCIA/MODL Voice ID: [id number] Report ID: [id number]
--- NOTE | 2024-10-31 12:36 | EKG ---
Test Date: 2024-10-29 Test Time: 14:36:56 Seaming Machine Operator: ANTHONY MEASUREMENT RESULTS: Intervals: Rate: 95 NV: 148 QRSD: 84 QT: 334 QTc: 419 Rudolph: P: 64 NV: 148 QRS: 50 T: 80 INTERPRETIVE STATEMENTS: Normal sinus rhythm Normal ECG Compared to ECG 10/29/2024 14:36:18 Myocardial infarct finding no longer present Electronically Signed On 10-31-24 12:27:07 CDT by Eran Grider
--- NOTE | 2024-10-31 12:36 | EKG ---
Test Date: 2024-10-29 Test Time: 14:36:18 Rail Gang Supervisor: ANTHONY MEASUREMENT RESULTS: Intervals: Rate: 93 RI: 148 QRSD: 86 QT: 334 QTc: 415 Palms: P: 69 RI: 148 QRS: 54 T: 83 INTERPRETIVE STATEMENTS: Normal sinus rhythm Septal infarct, age undetermined Abnormal ECG Compared to ECG 01/01/2022 14:45:33 Myocardial infarct finding now present Electronically Signed On 10-31-24 12:27:09 CDT by Eran Grider
--- NOTE | 2024-10-31 12:37 | EKG ---
Test Date: 2024-10-29 Test Time: 12:39:40 Doctor Of Naturopathic Medicine: LML MEASUREMENT RESULTS: Intervals: Rate: 79 CO: 144 QRSD: 88 QT: 338 QTc: 387 Thatcher: P: 69 CO: 144 QRS: 44 T: 77 INTERPRETIVE STATEMENTS: Normal sinus rhythm Normal ECG Compared to ECG 01/01/2022 14:45:33 No significant changes Electronically Signed On 10-31-24 12:27:58 CDT by Eran Grider
== END 2024-10-30 15:56 | disposition short-term general hospital (02) | DRG 281 ==
LOC: ER 12:11 → ERHOLD 15:03 → 2ND 22:55
PROVIDERS: ADMIT Hospitalist; ATTEND Internal Medicine
PROC: B2011ZZ Plain Radiography of Multiple Coronary Arteries using Low Osmolar Contrast (ICD-10-PCS; principal; 2024-10-30)
DX: I21.4 Non-ST elevation (NSTEMI) myocardial infarction (principal); E87.1 Hypo-osmolality and hyponatremia; I10 Essential (primary) hypertension; F17.200 Nicotine dependence, unspecified, uncomplicated; E87.5 Hyperkalemia
CPT/HCPCS: 36415; 71045; 76937; 80048; 80076; 81003; 82570; 83735; 83880; 83930; 83935; 84132; 84145; 84300; 84484; 84550; 85025; 85610; 85730; 93005; 93454; 96374; 99152; 99153; 99285; C1893; J0461; J1644; J2003; J2250; J3010; J7030; Q9966